=== PATIENT | female | born 1955 | race Caucasian/White ===

== ENCOUNTER 2020-10-25 13:26 | Outpatient (CLI) | payer BC ==
--- NOTE | 2020-10-25 14:44 | BD ---
DEXA BONE DENSITY STUDY: HISTORY: Postmenopausal. FINDINGS: Lumbar Spine: BMD (g/cm2) L1 0.912 T-Score: -0.7 L2 0.998 T-Score: -0.3 L3 0.936 T-Score: -1.3 L4 0.874 T-Score: -1.7 L1-L4 0.927 T-Score: -1.1 Femoral Neck: 0.621 T-Score: -2.2 Total Femur: 0.921 T-Score: -0.2 Impression: 1. Osteopenia of the left femoral neck and lumbar spine. 2. Ten-year fracture risk of major osteoporotic fracture is 19% and hip fracture 4.5%. These fractu re probabilities are calculated for an untreated patient. POS: [facility]
== END 2020-10-25 13:27 | disposition home or self-care (01) ==
LOC: BICMAMMO 13:26
PROVIDERS: ATTEND Family Medicine
DX: M85.89 Other specified disorders of bone density and structure, multiple sites (principal)
CPT/HCPCS: 77080